=== PATIENT | female | born 1965 | race Caucasian/White ===

== ENCOUNTER 2016-08-25 09:53 | Outpatient (CLI) | payer BC ==
[~2016-08-25] VITALS: Ht 162.6 cm; Wt 61.4 kg
[2016-08-25 10:00] VITALS: BP 122/65; PULSE 73; RESP 16; Ht 162.6 cm; Wt 61.4 kg
[2016-08-25] MEDS ORDERED: ALBU90AE INHALATION (10:07)
[2016-08-25] MEDS ORDERED: AZEL50FO TP (10:07)
[2016-08-25] MEDS ORDERED: IBUP200C PO (10:07)
--- NOTE | 2016-08-25 18:18 | CONS ---
Date/Time of Note Date/Time of Note DATE: 08/25/16 TIME: 18:16 Assessment/Plan Assessment/Plan Additional Assessment/Plan [facility] INITIAL OUTPATIENT CONSULTATION NOTE DATE OF CONSULTATION: 08/25/2016 PLACE OF SERVICE: [facility] ASSESSMENT AND PLAN: A very-pleasant 50-year-old otherwise healthy lady presenting with a subcutaneous lesion in the upper inner thigh/groin area that appears to be a benign lesion such as lipoma or subcutaneous gland. Not consistent with a hernia. No indication for acute surgical intervention. Would be useful to review available ultrasound images and likely be able to follow as an outpatient. I discussed all of the above in detail with the patient and reassured her and answered all her questions. With above assessment, I've recommended the followin. Obtain previous ultrasound images and review 2. Follow-up with Dr. George 3. Follow-up with us as needed Thank you very much for having me involved in the care of this very pleasant patient and wonderful family. If you have any questions, please feel free to contact me at [phone]. Nature of presenting problem: Low severity Please note that, given the limited number of diagnoses or management options, the limited amount and/or complexity of data needed to be reviewed, and minimal risk of complications and/or morbidity or mortality, this qualifies as low complexity type of decision-making. Disclaimer: Inadvertent spelling and grammatical errors are likely due to EHR/ dictation software use and do not reflect on the quality of delivered patient care. Also, please note that the electronic time recorded on this node does not necessarily reflect the actual time of the visit. Updated clinical summary: A very-pleasant 50-year-old otherwise healthy lady presenting with a subcutaneous lesion in the upper inner thigh/groin area. Comorbidities: 1. Acne 2. Anemia 3. Asthma 4. Use of contraceptives 5. Fibroid/leiomyoma uterus 6. Migraine 7. Breast biopsy 8. 9. Lasik procedure 10. CONSULTATION REQUESTED BY: Saida George MD HISTORY OF PRESENT ILLNESS: The patient is a very pleasant 50-year-old otherwise healthy lady presenting with a subcutaneous lesion in the upper inner thigh/groin area. She has noted this lesion many years ago and she reports it to be stable in presentation. No previous issues with pain. Her only concern was the presence of the lesion and for this reason she had asked for further evaluation. No other major complaints during my visit. ALLERGIES: Sulfonamides (rash) MEDICATIONS Documented in the electronic records and reviewed by me. Please see the electronic records for details. SOCIAL HISTORY: The patient lives with family. 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 Father had colon polyps as well as hypertension, CVA and hyperlipidemia. Both father and grandfather are . Mother had infertility which was unexplained. There are no significant medical, surgical or oncologic issues in the family as reported by the patient or reflected in the chart. REVIEW OF SYSTEMS: Other than mentioned above, there were no other pertinent positives or pertinent negatives in an otherwise complete 14 point review of systems. PHYSICAL EXAMINATION GENERAL: The patient appears to be a very pleasant lady of non- descent sitting in a chair, appearing stated age,] and otherwise in no acute distress. BMI: 23.2 VITAL SIGNS: AVSS (please also see auto important data if available as well as the electronic records) HEENT: Normocephalic and atraumatic. Extraocular muscles and hearing are grossly intact bilaterally and symmetrically. Sclerae are nonicteric. Oral cavity is clear; oral mucosa appear to be pink and moist. Dentition: fair. NECK: Supple. There is no lymphadenopathy or JVD. There is no submental, submandibular or supraclavicular lymphadenopathy. CHEST: Rises symmetrically with each breath; patient is breathing comfortably. There are no audible wheezes, rales or rhonchi on the gross exam. HEART: Pulse is regular and palpable on the right wrist. Capillary refill is normal. Carotid pulses are palpable bilaterally and symmetrically in the neck. EXTREMITIES: Lower extremities contain no pitting edema around the ankles bilaterally and symmetrically. ABDOMEN: Abdomen is soft, nontender and nondistended. No evidence of ascites, organomegaly, caput medusae, engorged subcutaneous veins, or other abnormalities. There are no peritoneal signs or guarding. Groin exam showed a soft tissue mass palpable in the right vulvovaginal and groin region approximately 1 x 1.5 cm which is nontender, contains no evidence of a hernia with Valsalva maneuver, no erythema on the skin, soft to palpation and no evidence of any discharge. SKIN: Appears to be pink and feels warm to touch. NEUROLOGIC: Awake, alert, and follows commands appropriately. LABORATORY DATA: 07/22/2016: Lipid panel is normal. Urinalysis normal. Albumin 4.4. Liver function and injury parameters normal. Hemoglobin A1c 4.9. Creatinine 0.71. TSH 1.18. White blood cell count 6.4. Platelets 236. Hemoglobin 13.5. IMAGING: None available for this visit Consultation Date/Type/Reason Admit Date/Time Exam/Review of Systems Vital Signs Vitals Vital Signs Date Time Temp Pulse Resp B/P Pulse Ox O2 Delivery O2 Flow Rate FiO2 08/25/16 10:00 98.2 73 16 122/65 99 Room Air KENDAL FLORES M.D. Aug 25, 2016 18:18
== END 2016-08-25 15:52 | disposition home or self-care (01) ==
LOC: HPC 09:53
PROVIDERS: ATTEND Transplant Surgery
DX: L98.8 Other specified disorders of the skin and subcutaneous tissue (principal); D64.9 Anemia, unspecified; J45.909 Unspecified asthma, uncomplicated; D25.9 Leiomyoma of uterus, unspecified
CPT/HCPCS: G0463